=== PATIENT | male | born 1995 | race African-American/Black ===

== ENCOUNTER 2022-08-07 16:42 | Emergency (ER) | payer OTHER ==
[2022-08-07 17:01] VITALS: BP 119/73
[2022-08-07 17:13] LABS: BILIRUBIN,URINE NEGATIVE (NEGATIVE); GLUCOSE, URINE (UA) NEGATIVE (NEGATIVE); KETONES,URINE (UA) NEGATIVE (NEGATIVE); LEUKOCYTE ESTERASE, URINE NEGATIVE (NEGATIVE); NITRITE,URINE NEGATIVE (NEGATIVE); OCCULT BLOOD,URINE NEGATIVE (NEGATIVE); PROTEIN,URINE NEGATIVE (NEGATIVE); UROBILINOGEN,URINE 0.2 (NORMAL) E.U./dL (NORMAL)
[2022-08-07 17:36] LABS: CLARITY,URINE HAZY (CLEAR)
[2022-08-07 17:37] LABS: AMORPHOUS SEDIMENT,UR Few /LPF; BACTERIA,URINE None Seen /HPF (None Seen); RBC,URINE None Seen /HPF (0-5); SQUAMOUS EPITHELIAL CELL,UR NONE SEEN (<= Few); WBC,URINE 0-3 /HPF (0-3)
[2022-08-07] MEDS ORDERED: KETOROLAC 10 MG TABLET PO STA (17:47)
[2022-08-07] MEDS ORDERED: CYCLOBENZAPRINE 10 MG TABLET PO STA (17:47)
--- NOTE | 2022-08-07 17:49 | ED Physician Documentation ---
PD HPI BACK PAIN - Stated complaint Stated Complaint: R SIDED BACK PAIN - Chief complaint Chief Complaint: Back Pain - History obtained from History obtained from: Patient - Additional information Additional information: 26-year-old gentleman has had mild back pain for the last 2 weeks or so but today it got worse and has a spasm on the right side. He has an allergy to Motrin. He denies weakness, numbness, tingling, saddle anesthesia, fevers, IV drug use. PD PAST MEDICAL HISTORY - Present Medications Home Medications: Ambulatory Orders Medication Instructions Recorded Confirmed Cyclobenzaprine [Flexeril] 10 mg PO TID PRN #20 tablet 08/07/22 Ketorolac [Toradol] 10 mg PO Q6H PRN #15 tablet 08/07/22 - Allergies Allergies/Adverse Reactions: Allergies Allergy/AdvReac Type Severity Reaction Status Date / Time No Known Drug Allergies Allergy Verified 08/07/22 17:02 PD ED PE NORMAL - Vitals Vital signs reviewed: Yes - General General: Alert and oriented X 3, No acute distress - Abdomen Abdomen: Non tender - Back Back: No CVA TTP, Other (Palpable spasm right paralumbar muscles, no midline spinal tenderness.) - Extremities Extremities: Other (The patient has equal and normal Achilles and patellar reflexes bilaterally. Normal sensation in all areas of the legs. Patient denies saddle anesthesia. Normal strength in flexion-extension at the ankles, knees, and flexion of the hips.) - Neuro Neuro: Alert and oriented X 3, Normal speech Results - Vitals Vitals: Vital Signs - 24 hr 08/07/22 16:59 Temperature 37 C Heart Rate 69 Respiratory 16 Rate Blood Pressure 119/73 O2 Saturation 99 Oxygen O2 Source Room air - Labs Labs: Laboratory Tests 08/07/22 17:04 Urine Color YELLOW Urine Clarity HAZY Urine pH 7.0 Ur Specific [place] 1.020 Urine Protein NEGATIVE Urine Glucose (UA) NEGATIVE Urine Ketones NEGATIVE Urine Occult Blood NEGATIVE Urine Nitrite NEGATIVE Urine Bilirubin NEGATIVE Urine Urobilinogen 0.2 (NORMAL) Ur Leukocyte Esterase NEGATIVE Urine RBC None Seen Urine WBC 0-3 Ur Squamous Epith Cells NONE SEEN Amorphous Sediment Few Urine Bacteria None Seen Ur Microscopic Review INDICATED Urine Culture Comments NOT INDICATED PD Medical Decision Making - ED course ED course: This patient has seemingly uncomplicated musculoskeletal back pain. The patient has no "red flags." Specifically denies IV drug use, fevers, incontinence, saddle anesthesia. Spinal epidural abscess was considered, given that the patient has no fever, is not diabetic, has no spinal tenderness, does not use IV drugs, and has no bilateral neurologic symptoms, the diagnosis of spinal epidural abscess is considered exceedingly unlikely. Departure - Departure Disposition: 01 Home, Self Care Clinical Impression: Back spasm Condition: Good Record reviewed to determine appropriate education?: Yes Instructions: ED Spasm Back No Trauma Prescriptions: Cyclobenzaprine [Flexeril] 10 mg PO TID PRN #20 tablet PRN Reason: Spasms Ketorolac [Toradol] 10 mg PO Q6H PRN #15 tablet PRN Reason: Pain Comments: Heat and gentle stretching. Return for new or worsening symptoms. Follow-up with your flight surgeon if not better by the end of the weekend.
== END 2022-08-07 17:57 | disposition home or self-care (01) ==
LOC: ED 16:42
DX: M62.830 Muscle spasm of back (principal)
CPT/HCPCS: 81001; 99283; A9270; 81003; 87086

== ENCOUNTER 2022-12-21 08:21 | Emergency (ER) | payer OTHER ==
--- NOTE | 2022-12-21 09:06 | XRAY Report ---
PROCEDURE: Ankle 3 View RT INDICATIONS: Trauma TECHNIQUE: 3 views of the ankle were acquired. COMPARISON: None. FINDINGS: Bones: Subtle cortical step-off noted involving the medial aspect of the talar dome on the oblique v iew. Ankle mortise is symmetric. Lateral soft tissue swelling noted. Soft tissues: No tibiotalar joint effusion. Achilles tendon appears normal. IMPRESSION: Possible lateral talar nondisplaced fracture. Consider follow-up MR or CT. Reviewed by: Slick Reyna MD on 12/21/2022 8:05 AM CH[facility]INE Approved by: Slick Reyna MD on 12/21/2022 8:05 AM CHRISTINE Station ID: [id number]
--- NOTE | 2022-12-21 10:09 | ED Physician Documentation ---
PD HPI LOWER EXT INJURY - Stated complaint Stated Complaint: RT ANKLE INJURY - Chief complaint Chief Complaint: Trauma Ext - History obtained from History obtained from: Patient, Family - History of Present Illness PD HPI LOW EXT INJURY LOCATION: Right, Ankle Type of injury: Fall Where injury occurred: Street Timing - onset: Yesterday Timing - duration: Days (1) Timing - details: Abrupt onset, Still present Improved by: Rest, Immobilization Worsened by: Moving, Palpating Associated symptoms: Swelling. No: Weakness, Numbness Contributing factors: No: Anticoagulated, Prior ortho surgery, Prosthetic joint, Work related Similar symptoms before: Has not had sx before Recently seen: Not recently seen - Additional information Additional information: Previously well Jose Sawyer was longboarding yesterday when he fell. He has multiple abrasions and swelling and pain to the right ankle. He is unable to bear weight. He has been getting around by hopping. Review of Systems Constitutional: denies: Fever Nose: denies: Congestion Throat: denies: Sore throat Respiratory: denies: Cough GI: denies: Vomiting, Constipation, Diarrhea PD PAST MEDICAL HISTORY - Present Medications Home Medications: Ambulatory Orders Medication Instructions Recorded Confirmed No Known Home Medications 12/21/22 12/21/22 - Allergies Allergies/Adverse Reactions: Allergies Allergy/AdvReac Type Severity Reaction Status Date / Time ibuprofen AdvReac Edema Verified 12/21/22 08:30 PD ED PE NORMAL - Vitals Vital signs reviewed: Yes (tachy nad hypertensive) - General General: Alert and oriented X 3, Well developed/nourished, Other (appears mildly anxious ) - HEENT HEENT: Atraumatic, PERRL, EOMI - Neck Neck: Supple, no meningeal sign, No bony TTP - Respiratory Respiratory: No respiratory distress - Derm Derm: Normal color, Warm and dry - Extremities Extremities: Other (Swelling and point tenderness to the lateral malleolus and n ot to the proximal 5th. reduced ROM secondary to pain. Pain with inversion) - Neuro Neuro: Alert and oriented X 3, medical manager 2-12 intact, No motor deficit, No sensory deficit, Normal speech Eye Opening: Spontaneous Motor: Obeys Commands Verbal: Oriented GCS Score: 15 - Psych Psych: Normal mood, Normal affect Results - Vitals Vitals: Vital Signs - 24 hr 12/21/22 12/21/22 08:27 11:02 Temperature 37.4 C Heart Rate 104 H 87 Respiratory 14 18 Rate Blood Pressure 125/87 H 129/69 O2 Saturation 99 100 Oxygen O2 Source Room air - Rads (name of study) ankle Relevant Findings:: Prelim report reviewed (Impression: Possible lateral talar nondisplaced fracture. Consider follow-up MRI or CT.), EMP independent interpretation of test PD Medical Decision Making - ED course Complexity details: reviewed results, re-evaluated patient, considered differential, d/w patient, d/w family ED course: I reviewed the patient's x-ray did not find evidence of a fracture placed the patient into a ankle stirrup and onto crutches and discharged. When the radiologist reviewed the patient's x-ray it appeared to have evidence of a talar fracture which was nondisplaced and seen on a single view. The recommendation is to have MRI or CT done of the ankle to evaluate this for the possibility of a fracture. I have called the patient and recommended he contact his primary for referral to the orthopod for this study. Departure - Departure Disposition: 01 Home, Self Care Clinical Impression: Ankle sprain Qualifiers: Encounter type: initial encounter Involved ligament of ankle: calcaneofibular ligament Laterality: right Qualified Code(s): S93.411A - Sprain of calcaneofibular ligament of right ankle, initial encounter Talar fracture Qualifiers: Encounter type: initial encounter Fracture type: closed Talus location: dome of talus Fracture alignment: nondisplaced Laterality: right Qualified Code(s): S92.144A - Nondisplaced dome fracture of right talus, initial encounter for closed fracture Condition: Stable Instructions: ED Sprain Ankle Follow-Up: DANAE BONILLA, [Primary Care Provider] - Comments: Lisandro, my recommendation is to wear this ankle stirrup / for 2 weeks to allow the ligament to heal without stretching. Discharge Date/Time: 12/21/22 11:19
[2022-12-21 11:07] VITALS: BP 129/69
== END 2022-12-21 11:19 | disposition home or self-care (01) ==
LOC: ED 08:21
DX: S93.411A Sprain of calcaneofibular ligament of right ankle, initial encounter (principal); W18.30XA Fall on same level, unspecified, initial encounter; Y93.89 Activity, other specified
CPT/HCPCS: 99283

== ENCOUNTER 2024-02-13 08:00 | Outpatient (CLI) | payer OTHER ==
[2024-02-13 22:08] LABS: CHLAMYDIA TRACHOMATIS DNA NEGATIVE (NEGATIVE); NEISSERIA GONORRHOEAE DNA NEGATIVE (NEGATIVE); TRICHOMONAS VAGINALIS DNA NEGATIVE (NEGATIVE)
== END 2024-02-13 23:59 | disposition home or self-care (01) ==
LOC: LAB.N 08:00
PROVIDERS: ATTEND Physician Assistant Medical
DX: Z11.3 Encounter for screening for infections with a predominantly sexual mode of transmission (principal)
CPT/HCPCS: 87491; 87591; 87661

== ENCOUNTER 2024-02-15 12:19 | Outpatient (CLI) | payer OTHER | END 2024-02-15 12:20 | disposition home or self-care (01) | LOC: LAB.N 12:19 | PROVIDERS: ATTEND Physician Assistant Medical | DX: Z11.3 Encounter for screening for infections with a predominantly sexual mode of transmission (principal) | CPT/HCPCS: 86592; 86695; 86696; 86803; 87389; 87491; 87591; 87661 ==

== ENCOUNTER 2024-04-04 19:08 | Outpatient (CLI) | payer OTHER | END 2024-04-04 23:59 | disposition left against medical advice (07) | LOC: EMS 19:08 | DX: R07.89 Other chest pain (principal); R06.02 Shortness of breath ==

== ENCOUNTER 2024-04-04 19:53 | Emergency (ER) | payer OTHER ==
--- NOTE | 2024-04-04 20:29 | ED Physician Documentation ---
History of Present Illness - Stated complaint Stated Complaint: CHEST PX/SOA - Chief complaint Chief Complaint: General - History obtained from History obtained from: Patient - History of Present Illness Pain level max: 3 Pain level now: 3 - Additonal information Additional information: 28-year-old male, active [employer] presents to the emergency department stating he had chest pain earlier today. Center of the chest, felt like it was "inside". Better with taking a deep breath. Nothing made it worse. He does vape. Has had similar symptoms previously with no cause found. No recent travel. No leg swelling. No history of blood clots in the family. No history of young cardiac disease. Currently asymptomatic. No change with exertion, eating or drinking. Review of Systems Constitutional: denies: Fever, Chills Throat: denies: Sore throat Cardiac: denies: Palpitations Respiratory: denies: Dyspnea, Cough, Wheezing Skin: denies: Rash Musculoskeletal: denies: Neck pain, Back pain Neurologic: denies: Headache PD PAST MEDICAL HISTORY - Past Medical History Past Medical History: Yes - Past Surgical History Past Surgical History: No - Present Medications Home Medications: Ambulatory Orders Medication Instructions Recorded Confirmed No Known Home Medications 12/21/22 12/21/22 - Allergies Allergies/Adverse Reactions: Allergies Allergy/AdvReac Type Severity Reaction Status Date / Time shellfish derived Allergy Anaphylaxis Verified 04/04/24 19:57 ibuprofen AdvReac Edema Verified 04/04/24 19:57 - Social History Does the pt smoke?: No Smoking Status: Current every day smoker Does the pt drink ETOH?: Yes Does the pt have substance abuse?: No PD ED PE NORMAL - Vitals Vital signs reviewed: Yes - General General: Alert and oriented X 3, No acute distress - HEENT HEENT: Moist mucous membranes - Neck Neck: Supple, no meningeal sign - Cardiac Cardiac: RRR, Strong equal pulses - Respiratory Respiratory: No respiratory distress, Clear bilaterally - Abdomen Abdomen: Soft, Non tender, Non distended - Derm Derm: Warm and dry - Extremities Extremities: No edema, No calf tenderness / cord - Neuro Neuro: Alert and oriented X 3 - Psych Psych: Normal mood, Normal affect Results - Vitals Vitals: Vital Signs - 24 hr 04/04/24 04/04/24 04/04/24 19:57 20:16 21:25 Temperature 36.3 C L 36.5 C Heart Rate 90 85 80 Respiratory 20 16 16 Rate Blood Pressure 146/90 H 144/88 H 128/88 H O2 Saturation 99 98 100 Oxygen O2 Source Room air - EKG (time done) 2015 EKG releavant findings:: EKG personally interpreted by author of this note. Relevant findings are: Rate: Rate (enter#) (74) Rhythm: NSR [place]: Normal Intervals: Normal DE QRS: Normal Ischemia: Normal ST segments - Labs Labs: Laboratory Tests 04/04/24 04/04/24 20:40 20:40 WBC 9.4 RBC 5.28 Hgb 15.7 Hct 47.5 MCV 90.0 MCH 29.7 MCHC 33.1 RDW 12.5 Plt Count 277 MPV 10.9 Neut # (Auto) 6.1 Lymph # (Auto) 2.3 [place] # (Auto) 0.6 Eos # (Auto) 0.4 Baso # (Auto) 0.1 Absolute Nucleated RBC 0.00 Nucleated RBC % 0.0 Sodium 139 Potassium 3.8 Chloride 105 Carbon Dioxide 26 Anion Gap 8.0 BUN 19 Creatinine 1.0 Estimated GFR (MDRD) 109 Glucose 69 L Calcium 9.9 Total Bilirubin 0.5 AST 17 ALT 34 Alkaline Phosphatase 68 Troponin I High Sens < 2.3 L Total Protein 7.0 Albumin 4.6 Globulin 2.4 Albumin/Globulin Ratio 1.9 Lipase 31 - Rads (name of study) cxr Relevant Findings:: Final report received, See rad report PD Medical Decision Making - ED course Complexity details: reviewed results, re-evaluated patient, considered differential (No ST elevation [place], no aortic dissection, no PE, no tension pneumothorax, no aortic aneurysm), d/w patient ED course: 28-year-old male with atypical chest pain. No acute findings on chest x-ray, EKG, laboratory testing. Asymptomatic here. This been ongoing for several months, [place]. No emergency medical condition at this time. Patient counseled regarding signs and symptoms for which I believe and urgent re-evaluation would be necessary. Patient with good understanding of and agreement to plan and is comfortable going home at this time This document was made in part using voice recognition software. While efforts are made to proofread this document, sound alike and grammatical errors may occur. Departure - Departure Disposition: 01 Home, Self Care Clinical Impression: Chest pain Qualifiers: Chest pain type: unspecified Qualified Code(s): R07.9 - Chest pain, unspecified Condition: Good Instructions: ED Chest Pain Atypical Unkn Cause Follow-Up: Your,doctor in 1 week [Other] Comments: [place]. Your testing today does not show any acute abnormalities. Please return if you worsen. Your EKG, chest x-ray and laboratory testing did not show any signs of heart ischemia. Forms: PCP List Discharge Date/Time: 04/04/24 21:24
[2024-04-04 20:47] LABS: BASOPHILS # (AUTO) 0.1 10^3/uL (0.0-0.1); BASOPHILS % (AUTO) 0.7 %; EOSINOPHILS # (AUTO) 0.4 10^3/uL (0.0-0.7); EOSINOPHILS % (AUTO) 4.2 %; HCT - HEMATOCRIT 47.5 % (42.0-52.0); HGB - HEMOGLOBIN 15.7 g/dL (14.0-18.0); LYMPHOCYTES # (AUTO) 2.3 10^3/uL (1.5-3.5); LYMPHOCYTES % (AUTO) 24.2 %; MEAN CORPUSCULAR HEMOGLOBIN 29.7 pg (27.0-31.0); MEAN CORPUSCULAR HGB CONC 33.1 g/dL (32.0-36.0); MEAN PLATELET VOLUME 10.9 fL (7.4-11.4); MONOCYTES # (AUTO) 0.6 10^3/uL (0.0-1.0); MONOCYTES % (AUTO) 5.8 %; NEUTROPHILS # (AUTO) 6.1 10^3/uL (1.5-6.6); NEUTROPHILS % (AUTO) 64.9 %; PLT - PLATELET COUNT 277 10^3/uL (130-450); RED BLOOD COUNT 5.28 10^6/uL (4.70-6.10); RED CELL DISTRIBUTION WIDTH 12.5 % (12.0-15.0); WHITE BLOOD COUNT 9.4 x10^3/uL (4.8-10.8)
--- NOTE | 2024-04-04 20:57 | XRAY Report ---
PROCEDURE: Chest 1V INDICATIONS: Chest Pain TECHNIQUE: One view of the chest was acquired. COMPARISON: None. FINDINGS: Surgical changes and devices: None. Lungs and pleura: No pleural effusions or pneumothorax. Lungs are clear. Mediastinum: Mediastinal contours appear normal. Heart size is normal. Bones and chest wall: No suspicious bony lesions. Overlying soft tissues appear unremarkable. IMPRESSION: No acute cardiopulmonary process. Reviewed by: Malachi Winters MD on 04/04/2024 8:56 PM PDT Approved by: Malachi Winters MD on 04/04/2024 8:56 PM PDT Station ID: [id number]
[2024-04-04 21:00] LABS: ALBUMIN 4.6 g/dL (3.2-5.5); ALBUMIN/GLOBULIN RATIO 1.9 (1.0-2.2); ALKALINE PHOSPHATASE 68 IU/L (42-121); ALT ALANINE AMINOTRANSFERASE 34 IU/L (10-60); AST ASPARTATE AMINOTRANSFERASE 17 IU/L (10-42); BILIRUBIN,TOTAL 0.5 mg/dL (0.2-1.0); BUN - BLOOD UREA NITROGEN 19 mg/dL (6-20); CALCIUM 9.9 mg/dL (8.5-10.3); CARBON DIOXIDE - CO2 26 mmol/L (21-32); CHLORIDE 105 mmol/L (101-111); GFR - MDRD 109 (>89); GLUCOSE 69 mg/dL (74-104); LIPASE 31 U/L (11-82); POTASSIUM 3.8 mmol/L (3.5-4.5); SODIUM 139 mmol/L (135-145)
[2024-04-04 21:04] LABS: TROPONIN I HIGH SENSITIVITY < 2.3 ng/L (2.3-19.7)
[2024-04-04 21:35] VITALS: BP 128/88; O2SAT 100
== END 2024-04-04 21:24 | disposition home or self-care (01) ==
LOC: ED 19:53
DX: R07.9 Chest pain, unspecified (principal); F17.290 Nicotine dependence, other tobacco product, uncomplicated
CPT/HCPCS: 36415; 80053; 83690; 84484; 85025; 93005; 99284